=== PATIENT | male | born 1980 | race Caucasian/White ===

== ENCOUNTER 2023-04-04 04:55 | Emergency (ER) | payer MEDICAID, MEDICARE ==
[~2023-04-04] VITALS: Ht 162.6 cm; Wt 102.3 kg
[~2023-04-04 04:55] MED LIST: CEPH-581 PO; CLIN-26 PO; HYDR-4870 PO; LOSA25TA2 PO; POTA-92 PO; SERT-158 PO
[2023-04-04 06:17] LABS: APPEARANCE,URINE HAZY (CLEAR); BILIRUBIN,URINE NEGATIVE (NEGATIVE); GLUCOSE, URINE (UA) NEGATIVE (NEGATIVE); KETONES,URINE NEGATIVE (NEGATIVE); LEUKOCYTE ESTERASE ,URINE LARGE (NEGATIVE); NITRATE,URINE POSITIVE (NEGATIVE); OCCULT BLOOD,URINE NEGATIVE (NEGATIVE); PROTEIN,URINE NEGATIVE (NEGATIVE); SPECIFIC GRAVITIY, URINE 1.014 (1.003-1.030); UROBILINOGEN,URINE <=1.0 mg/dL (<=1.0)
[2023-04-04 06:24] LABS: BACTERIA,URINE Many /HPF (None Seen); RBC,URINE None Seen /HPF (0-2); SQUAMOUS EPITHELIAL CELL,UR Rare /LPF (None Seen); WBC,URINE 26-50 /HPF (0-5)
[2023-04-04] MEDS ORDERED: KETOROLAC TROMETHAMINE 30 MG/ML VIAL IVP ONE (06:30)
[2023-04-04] MEDS ORDERED: SODIUM CHLORIDE 0.9% 1,000 ML IV ONE (06:30)
[2023-04-04] MEDS ORDERED: CefTRIAXone 1 GM/DEXTROSE 50 ML IV ONE (07:00)
[2023-04-04 08:00] VITALS: BP 145/84
[2023-04-04] MEDS ORDERED: OXYC-38 PO (08:18)
[2023-04-04] MEDS ORDERED: TAMS-13 PO (08:18)
[2023-04-04] MEDS ORDERED: IBUP-1492 PO (08:18)
[2023-04-04] MEDS ORDERED: ONDA-104 PO (08:18)
[2023-04-04] MEDS ORDERED: CEFD300C18 PO (08:18)
== END 2023-04-04 08:24 | disposition home or self-care (01) ==
LOC: EMS 04:56
DX: N39.0 Urinary tract infection, site not specified (principal); N20.0 Calculus of kidney; F41.9 Anxiety disorder, unspecified; F32.A Depression, unspecified; I10 Essential (primary) hypertension; Z91.013 Allergy to seafood; Z87.442 Personal history of urinary calculi
CPT/HCPCS: 99285; 74176; 96365; 96375; 81001; 87086; 87186; J0696; J1885